=== PATIENT | male | born 1985 | race Caucasian/White ===

== ENCOUNTER 2019-09-22 13:46 | Outpatient (CLI) | payer OTHER, SELFPAY ==
--- NOTE | ~2019-09-22 | MR_ITS ---
EXAMINATION: MR knee LT wo con DATE: 09/22/2019 14:23 INDICATION: Left knee pain TECHNIQUE: Magnetic resonance imaging (MRI) of the left knee was performed without intravenous contra st. Sequences included coronal PD-weighted FSE, coronal PD-weighted FS FSE, sagittal T2-weighted FSE , sagittal PD-weighted FS FSE and axial PD weighted fat saturated FSE. COMPARISON: Radiographs dated 09/09/2019 FINDINGS: Medial compartment: Medial meniscus is normal. Articular cartilage is normal. Lateral compartment: Lateral meniscus is normal. Articular cartilage is normal. Patellofemoral compartment: Articular cartilage is normal. Ligaments and tendons: Anterior and posterior cruciate ligaments are normal. The medial collateral ligament and fibular stiven ateral ligament complex are normal. There is heterotopic ossification with mild internal marrow edema along the deep margin of the distal patellar tendon near its anterior tibial tuberosity insertion co nsistent with likely sequela of chronic Murdo-Schlatter's disease. Extensor mechanism is otherwise u nremarkable. The visualized medial and lateral hamstring tendons as well as the iliotibial band are n ormal. Fluid: Physiologic amount of fluid in the joint space. No loose osteochondral bodies identified. Osseous/other: Aside from the previous noted heterotopic ossification at the anterior tibial tuberosity there is nor mal marrow signal throughout. No fracture or abnormal marrow replacing process. There is amorphous lo w signal intensity replacing the subcutaneous fat overlying the inferior margin of the patella as wel l as anterior tibial tuberosity likely related to fibrosis which is nonspecific but can be seen in th e setting of chronic activities requiring kneeling such as wrestling. IMPRESSION: 1. Mild edema suggesting inflammation within a prominent heterotopic ossicle at the anterior tibial t uberosity insertion of the distal patellar tendon consistent with chronic Sarthak-Schlatter's disease. 2. No internal derangement with normal menisci, cartilage and stabilizing ligaments of the knee. Reviewed, dictated and finalized at location A. IMPRESSION: 1. Mild edema suggesting inflammation within a prominent heterotopic ossicle at the anterior tibial tuberosity insertion of the distal patellar tendon consist ent with chronic Sarthak-Schlatter's disease. 2. No internal derangement with normal menisci, cartilage and stabilizing ligam ents of the knee.
== END 2019-09-22 13:47 ==
LOC: MICIMG 13:47
PROVIDERS: PCP Family Medicine; Visit Provider Nurse Practitioner Family
DX: M25.562 Pain in left knee (principal); R60.0 Localized edema
CPT/HCPCS: 73721

== ENCOUNTER → 2019-12-08 12:10 | Outpatient (CLI) | payer OTHER, SELFPAY ==
--- NOTE | ~2019-12-08 | XR_ITS ---
EXAMINATION: XR chest 2V EXAM DATE: 12/08/2019 12:32 INDICATION: Shortness of breath, cough and dizziness. TECHNIQUE: Frontal and lateral projections of the chest obtained and reviewed. Comparison is made to prior examination from 01/16/2018. FINDINGS: The lungs are clear. There are no pleural effusions. The cardiomediastinal silhouette is within normal limits. There is no pneumothorax suspected. The bones and soft tissues are unremarkab le. There is no significant interval change. IMPRESSION: No acute cardiopulmonary findings. Reviewed, dictated and finalized at location B.
== END ==
PROVIDERS: PCP Family Medicine; Visit Provider Physician Assistant
DX: R06.02 Shortness of breath (principal); R42 Dizziness and giddiness
CPT/HCPCS: 71046

== ENCOUNTER 2020-04-05 15:24 | Outpatient (CLI) | payer OTHER, SELFPAY ==
--- NOTE | ~2020-04-05 | XR_ITS ---
EXAMINATION: XR shoulder RT min 2V DATE: 04/05/2020 15:58 INDICATION: Right shoulder pain and stiffness TECHNIQUE: AP internally and externally rotated, AP oblique externally rotated and axillary views of the right shoulder were obtained. COMPARISON: None FINDINGS: Normal alignment. No fracture. Glenohumeral joint is normal. Acromioclavicular joint is normal. Tiny lateral subacromial spur. Soft tissues are unremarkable. Visualized portions of the right lung are c lear. IMPRESSION: Tiny lateral subacromial spur. Otherwise negative right shoulder radiographs. Reviewed, dictated and finalized at location A. INSPECTOR
--- NOTE | ~2020-04-05 | XR_ITS ---
EXAMINATION:XR cervical spine 4-5V DATE: 04/05/2020 15:58 INDICATION: Neck pain TECHNIQUE: AP, lateral, lateral swimmers and odontoid views of the cervical spine are provided. COMPARISON: None FINDINGS: Straightening of the normal cervical lordosis which could be positional or secondary to muscle spasm. No spondylolisthesis or facet subluxation. Vertebral body and disc heights are normal. Odontoid is i ntact. Normal atlantoaxial interval. Mild uncovertebral osteoarthritis on the right at C3-C4 and on the left at C5-C6. No significant facet osteoarthritis. Prevertebral soft tissues are normal. IMPRESSION: 1. Negligible cervical spondylosis with mild uncovertebral osteoarthritis on the right at C3-C4 on th e left at C5-C6. Reviewed, dictated and finalized at location A. ADJUSTER IMPRESSION: 1. Negligible cervical spondylosis with mild uncovertebral osteoarthritis on th e right at C3-C4 on the left at C5-C6.
== END 2020-04-05 15:25 ==
PROVIDERS: PCP Family Medicine; Visit Provider Family Medicine
DX: M25.511 Pain in right shoulder (principal); M54.2 Cervicalgia
CPT/HCPCS: 72050; 73030

== ENCOUNTER 2021-06-03 09:39 | Emergency (ER) | payer OTHER, SELFPAY ==
[2021-06-03 09:50] VITALS: BP 118/87; PULSE 78; RESP 16; TEMP 36.2; O2SAT 98
--- NOTE | 2021-06-03 10:39 | ED.URI ---
HPI - URI/Sore Throat General Chief Complaint: Upper Respiratory Infection Stated Complaint: uri Time Seen by Provider: 06/03/21 10:30 Source: patient and RN notes reviewed Mode of arrival: ambulatory Limitations: no limitations History of Present Illness HPI Narrative: Patient presents today complaining of a 3-day history of sinus congestion, with postnasal drainage cough, hoarseness. This morning, patient states he was, breathing through a straw. Denies fever. He has been taking allergy medication and Flonase without relief. Denies history of asthma or COPD. MD elicited complaint: cough and nasal congestion Related Data Allergies Allergy/AdvReac Type Severity Reaction Status Date / Time nitrous oxide Allergy Unknown Nausea and Verified 06/03/21 09:52 Vomiting oxycodone AdvReac Intermediate Anaphylaxis Verified 06/03/21 09:52 ANESTHESIA GAS AdvReac Intermediate Nausea and Uncoded 06/03/21 09:52 Vomiting Review of Systems Review of Systems: CONSTITUTIONAL: Denies body aches, fever, chills, or sweats. EYES: Denies visual changes, redness, or discharge. ENT: Denies rhinorrhea, sore throat, or otalgia.+ Postnasal drip, nasal congestion CARDIOVASCULAR: Denies chest pain, palpitations, or edema. RESPIRATORY: Denies dyspnea.+ Cough GASTROINTESTINAL: Denies abdominal pain, nausea, vomiting, or diarrhea. GENITOURINARY: Denies dysuria or hematuria. SKIN: Denies rash, itching, or wounds. MUSCULOSKELETAL: Denies back pain, joint pain, or myalgia. NEUROLOGIC: Denies headache, numbness, tingling, or weakness. PSYCH: Denies depression or anxiety. [facility] Past Medical History Medical History Chronic back pain History of adverse reaction to anesthesia History of appendicitis Clayton-Schlatter's disease Patellar tendonitis of left knee Vision abnormalities Surgical History Surgical History H/O discectomy (~2008) Hx of appendectomy (~1998) Family History Family History Grandparent Diabetes mellitus Depression Family history of malignant neoplasm of gastrointestinal tract Family history of primary malignant neoplasm of liver Father Family history of malignant neoplasm of testis Other Arthritis Social History Social History Years smoked: 4 Tobacco type: cigars Alcohol intake: current Drinks per week: 7 Substance use: never Substance use type: does not use Gender identity (if verbalized by the patient): Male Spiritual care concerns: No Agree to blood products: No Comments At time of signature, I have reviewed and agree with nursing past medical, surgical, social and family history unless otherwise noted. Please see nursing chart for further information. There is no relevant family history pertinent to the presenting complaint Exam Narrative: GENERAL: Well-appearing, well-nourished, and in no acute distress. HEAD: Normocephalic, atraumatic. EYES: EOMI. No redness or drainage. Conjunctivae normal. ENT: Mucous membranes pink and moist. Nares congested. No rhinorrhea. TMs normal bilaterally. Throat normal with small amount of postnasal drainage. Uvula midline. NECK: Normal AROM. Supple. No lymphadenopathy. CHEST: No respiratory distress. Clear to auscultation. HEART: Regular rate and rhythm. No murmur appreciated. Normal peripheral pulses. EXTREMITIES: Normal range of motion. No edema. SKIN: Warm, dry, no rash. Capillary refill normal. Normal skin turgor. NEURO: No focal deficits. Alert and oriented x3. Gait steady. PSYCH: Normal affect. No signs of depression or anxiety. Course Course Level of Care: Express Care Visit Vital Signs Vital signs: Vital Signs Temperature 97.1 F L 06/03/21 09:50 Pulse Rate 78 06/03/21 09:50 Respiratory Rate 16 06/03/21 09:50 Blood
== END 2021-06-03 10:47 | disposition home or self-care (01) ==
PROVIDERS: Emergency Provider Nurse Practitioner; PCP Family Medicine
DX: J40 Bronchitis, not specified as acute or chronic (principal); J06.9 Acute upper respiratory infection, unspecified
CPT/HCPCS: 99213; G0463

== ENCOUNTER → 2022-01-18 16:06 | Outpatient (CLI) | payer OTHER, SELFPAY ==
--- NOTE | ~2022-01-18 | XR_ITS ---
XR lumbar spine 2-3V DATE: 01/18/2022 16:26 INDICATION: Back pain TECHNIQUE: AP, lateral, coned lateral lumbosacral views COMPARISON: None FINDINGS: There is minimal levoscoliosis of the lumbar spine. There is moderately severe degenerative disc disease at L5-S1. The lumbar interspaces appear relative ly well preserved. No fracture or bone destruction. T12-L5 pedicles are intact. The sacroiliac joints appear normal. IMPRESSION: Moderately severe degenerative disease at L5-S1 Reviewed, dictated and finalized at location A.
== END ==
PROVIDERS: PCP Family Medicine; Visit Provider Physician Assistant Medical
DX: M51.37 Other intervertebral disc degeneration, lumbosacral region (principal)
CPT/HCPCS: 72100

== ENCOUNTER 2022-06-25 10:15 | Emergency (ER) | payer SELFPAY ==
--- NOTE | 2022-06-25 10:16 | ED.URI ---
HPI - URI/Sore Throat General Chief Complaint: Upper Respiratory Infection Stated Complaint: Congestion,Cough,Lt Ear Irritation Time Seen by Provider: 06/25/22 10:20 Source: patient, RN notes reviewed and old records reviewed Mode of arrival: ambulatory Limitations: no limitations History of Present Illness HPI Narrative: 36-year-old male presents to the [facility] with complaints of left ear pain, cough and congestion for 10 days Patient reports taking DayQuil, NyQuil and a decongestant yesterday. Onset (ago): day(s) () Consistency: constant Related Data Allergies Allergy/AdvReac Type Severity Reaction Status Date / Time nitrous oxide Allergy Unknown Nausea and Verified 06/25/22 10:24 Vomiting oxycodone AdvReac Intermediate Anaphylaxis Verified 06/25/22 10:24 ANESTHESIA GAS AdvReac Intermediate Nausea and Uncoded 01/18/22 15:33 Vomiting Review of Systems Review of Systems: All systems reviewed & are unremarkable except as noted in HPI and below Constitutional: Constitutional: Reports no additional constitutional complaints Eyes: Eyes: Reports no additional eye complaints ENT: Reports as per HPI, Reports otalgia, Reports nasal discharge and Reports sinus pressure Cardiovascular: Cardiovascular: Reports no additional cardiovascular complaints, Denies chest pain and Denies dyspnea Respiratory: Respiratory: Reports as per HPI, Reports chest congestion, Reports cough and Denies dyspnea Gastrointestinal: Gastrointestinal: Reports no additional gastrointestinal complaints, Denies abdominal pain, Denies nausea and Denies vomiting Musculoskeletal: Musculoskeletal: Reports no additional musculoskeletal complaints Integumentary/Breasts: Skin/Breast: Reports system reviewed and no additional complaints, except as docu Neurologic: Reports system reviewed and no additional complaints, except as documented Psychiatric: Psychiatric: Reports no additional psychiatric complaints Allergic/Immunologic: Allergic/Immunologic: Reports no additional allergic/immunologic complaints [facility] Past Medical History Medical History Chronic back pain History of adverse reaction to anesthesia History of appendicitis Tippo-Schlatter's disease Patellar tendonitis of left knee Vision abnormalities Surgical History Surgical History H/O discectomy (~2008) Hx of appendectomy (~1998) Family History Family History Grandparent Diabetes mellitus Depression Family history of malignant neoplasm of gastrointestinal tract Family history of primary malignant neoplasm of liver Father Family history of malignant neoplasm of testis Other Arthritis Social History Social History Years smoked: 4 Smoking status: Former smoker (quit 6 years ago. ) Tobacco type: cigars Alcohol intake: current Drinks per week: 7 Substance use: never Substance use type: does not use Lack of Transportation: No Lack of Food: Never True Current Housing: I Have Housing Concerned About Future Housing: No Difficulty Paying Gas/Electric Bills: No Difficulty Paying for Meds: No Currently Unemployed: No Education: Associate Degree Difficulty w/ Childcare or Family Care: No Living arrangements: with family Occupation/Education: occupation Gender identity (if verbalized by the patient): Male Spiritual care concerns: No Agree to blood products: No Comments At the time of my signature, I reviewed and agree with the nursing past medical, surgical, social, and family history. There is no relevant family history pertinent to the patient complaint. Exam Const: General: cooperative, healthy appearing, comfortable, no acute distress, well developed, alert and well nourished Nutritional Appearance: well nourish
[2022-06-25 10:18] VITALS: BP 118/80; PULSE 80; RESP 18; TEMP 36.7; O2SAT 100
== END 2022-06-25 10:35 | disposition home or self-care (01) ==
PROVIDERS: Emergency Provider Nurse Practitioner; PCP Family Medicine
DX: J40 Bronchitis, not specified as acute or chronic (principal); Z87.891 Personal history of nicotine dependence
CPT/HCPCS: 99213; G0463

== ENCOUNTER 2023-01-04 14:10 | Emergency (ER) | payer OTHER, SELFPAY ==
--- NOTE | ~2023-01-04 | XR_ITS ---
XR chest 2V DATE: 01/04/2023 14:52 INDICATION: Left chest pressure, shortness of breath TECHNIQUE: PA and lateral views COMPARISON: None FINDINGS: Normal heart size. No hilar or mediastinal enlargement. No pulmonary infiltrate or consolid ation, pleural effusion or pulmonary vascular congestion or pneumothorax. Included skeletal structure s appear normal. IMPRESSION: Negative Reviewed, dictated and finalized at location L. IMPRESSION: Negative
--- NOTE | 2023-01-04 14:12 | ECG_ITS ---
Measurements Intervals [place] Rate: 77 P: 47 NC: 146 QRS: 27 QRSD: 89 T: 33 QT: 365 QTc: 415 Interpretive Statements SINUS RHYTHM NORMAL ECG NO PREVIOUS ECG AVAILABLE FOR COMPARISON Electronically Signed On 01-04-2023 17:23:54 CDT by Venkatesh Conroy M.D.
[2023-01-04 14:16] VITALS: BP 125/88; PULSE 79; RESP 16; TEMP 36.7; O2SAT 97
[2023-01-04 14:38] LABS: Basophils Absolute Auto 0.1 K/mm3 (0.0-0.1); Eosinophils Absolute Auto 0.2 K/mm3 (0-0.3); Eosinophils Percent Auto 2.3 % (0-4.4); Hematocrit 44.1 % (42.0-52.0); Hemoglobin 14.7 g/dL (14.0-18.0); Immature Granulocyte Absolute 0.02 K/mm3 (0.00-0.031); Immature Granulocyte Percent A 0.3 % (0-0.5); Lymphocytes Absolute Auto 2.71 K/mm3 (0.9-3.2); Lymphocytes Percent Auto 34.1 % (18.3-44.2); Mean Corpuscular HGB Conc 33.3 g/dl (32-36); Mean Corpuscular Hemoglobin 29.1 pg (26-34); Mean Corpuscular Volume 87.3 fl (80-100); Mean Platelet Volume 9.9 fl (7.4-10.4); Monocytes Absolute Auto 0.5 K/mm3 (0.1-0.6); Monocytes Percent Auto 5.9 % (2.6-8.5); Neutrophils Absolute Auto 4.5 K/mm3 (1.3-6.7); Neutrophils Percent Auto 56.4 % (45.5-73.1); Platelet Count Result 262 k/mm3 (150-375); Red Blood Count 5.05 M/mm3 (4.6-6.20); Red Cell Distribution Width 12.4 % (11.5-14.5)
[2023-01-04 14:49] LABS: Alanine Aminotransferase 109 U/L (6-50); Albumin Level 4.9 g/dL (3.5-5.1); Alkaline Phosphatase 43 U/L (38-126); Anion Gap 10 mmol/L (8-16); Aspartate Amino Transferase 59 U/L (17-59); Bilirubin,Total 0.7 mg/dL (0.2-1.3); Blood Urea Nitrogen 16 mg/dL (9-20); Calcium 9.6 mg/dL (8.4-10.2); Carbon Dioxide 27 mmol/L (22-30); Chloride 101 mmol/L (98-107); Estimated CRCL calculation 121 ml/min; Estimated Glomerular Filt Rate > 60; Glucose 91 mg/dL (65-110); Lipase 104 U/L (23-300); Potassium 3.8 mmol/L (3.4-5.0); Sodium 138 mmol/L (137-145)
[2023-01-04 14:59] LABS: Troponin I < 0.012 ng/mL (0.000-0.034)
[2023-01-04 15:00] LABS: Partial Thromboplastin Time 27.5 SECONDS (22.3-36.8); Prothrombin Time 13.5 Seconds (11.1-14.7)
[2023-01-04 15:57] VITALS: BP 128/76; PULSE 69; RESP 18; TEMP 35.9; O2SAT 100
[2023-01-04 17:57] LABS: D Dimer < 0.27 ug/mL (<0.48)
[2023-01-04 18:16] VITALS: BP 129/93; PULSE 75; RESP 18; O2SAT 98
--- NOTE | 2023-01-04 18:16 | ED.GENADULT ---
HPI - General Adult General Chief complaint: Chest Pain Stated complaint: CP since last Sunday Time Seen by Provider: 01/04/23 16:43 History of Present Illness HPI narrative: 37-year-old male present emergency department for evaluation of chest pain. Patient was evaluated at [facility] recently for chest pain and had negative cardiac work-up. Patient does have cardiology follow-up on Sunday. Patient states he is still having some intermittent chest pain that radiates to his left arm. Patient denies any previous cardiac history. Patient denies any previous history of PE or DVT. Patient denies any recent cough colds or fevers. Related Data Allergies Allergy/AdvReac Type Severity Reaction Status Date / Time nitrous oxide Allergy Unknown Nausea and Verified 10/30/22 15:24 Vomiting acetaminophen [From Percocet] Allergy Dyspnea / Verified 01/04/23 16:38 SOB oxycodone AdvReac Intermediate Anaphylaxis Verified 10/30/22 15:24 ANESTHESIA GAS AdvReac Intermediate Nausea and Uncoded 10/30/22 15:24 Vomiting Review of Systems Review of Systems: All systems reviewed & are unremarkable except as noted in HPI and below PMFSH Past Medical History Medical History Chronic back pain History of adverse reaction to anesthesia History of appendicitis Imperial-Schlatter's disease Patellar tendonitis of left knee Vision abnormalities Surgical History Surgical History H/O discectomy (~2008) Hx of appendectomy (~1998) Family History Family History Grandparent Diabetes mellitus Depression Family history of malignant neoplasm of gastrointestinal tract Family history of primary malignant neoplasm of liver Father Family history of malignant neoplasm of testis Other Arthritis Social History Social History Years smoked: 4 Smoking status: Former smoker (quit 7 years ago. ) Tobacco type: cigars Alcohol intake: current Drinks per week: 7 Substance use: never Substance use type: does not use Lack of Transportation: No Lack of Food: Never True Current Housing: I Have Housing Concerned About Future Housing: No Difficulty Paying Gas/Electric Bills: No Difficulty Paying for Meds: No Currently Unemployed: No Education: Associate Degree Difficulty w/ Childcare or Family Care: No Living arrangements: with family Occupation/Education: occupation Gender identity (if verbalized by the patient): Male Spiritual care concerns: No Agree to blood products: No Exam Narrative: APPEARANCE: Well appearing, no pain, no distress, well-nourished. HEAD: normocephalic, atraumatic. EYES: PERRLA/EOMI, conjunctivae clear. NOSE: Normal no drainage NECK: Supple. No adenopathy, no masses. RESPIRATORY: Airway patent, respirations nonlabored. Clear to auscultation bilaterally, no rales, rhonchi, wheezing. CARDIOVASCULAR: Regular rate and rhythm without murmurs rubs or gallops. ABDOMINAL: Soft, nontender, nondistended, normal bowel sounds MUSCULOSKELETAL: Moves all extremities. Strength/ROM intact, No edema, No calf tenderness. NEURO: Alert. Cranial nerves II through XII intact. Grossly intact SKIN: Warm, dry. Normal Color Course Course Emergency Course: 37-year-old male present emerged department for evaluation of chest pain. Patient is afebrile with no leukocytosis and a stable hemoglobin. Patient has no significant abnormalities on his CMP. Patient had negative D-dimer. Patient had negative serial troponins. Chest x-ray showed no acute cardiopulmonary abnormality. EKG showed normal sinus rhythm with no ST changes. Patient was updated on the results of the work-up and was encouraged of close follow-up with his primary care physician and with cardiology as scheduled. Patient wa
[2023-01-04 18:22] VITALS: PULSE 78; RESP 13; O2SAT 98
[2023-01-04 18:29] LABS: Troponin I < 0.012 ng/mL (0.000-0.034)
== END 2023-01-04 18:47 | disposition home or self-care (01) ==
PROVIDERS: Emergency Provider Emergency Medicine; PCP Family Medicine
DX: R07.9 Chest pain, unspecified (principal); M92.529 Juvenile osteochondrosis of tibia tubercle, unspecified leg; Z87.891 Personal history of nicotine dependence
CPT/HCPCS: 36415; 71046; 80053; 83690; 84484; 85025; 85380; 85610; 85730; 93005; 99284

== ENCOUNTER 2024-01-08 14:35 | Outpatient (CLI) | payer BC, SELFPAY ==
--- NOTE | ~2024-01-08 | US_ITS ---
EXAMINATION: US scrotum doppler DATE: 01/08/2024 15:16 INDICATION: Testicular pain TECHNIQUE: Sonographic evaluation of the scrotum was performed assessing grayscale appearance and col or Doppler flow. Spectral Doppler evaluation was also performed. COMPARISON: None. FINDINGS: RIGHT TESTICLE: The right testicle measures 5.0 x 2.1 x 3.0 cm. Arterial and venous flow are present. RIGHT EPIDIDYMIS: The right epididymis measures 10 mm. Prominent vasculature with Valsalva. Pre-Valsalva measurement less than 3 mm. LEFT TESTICLE: The left testicle measures 4.6 x 2.4 x 3.0cm. Arterial and venous flow are demonstrated. LEFT EPIDIDYMIS: The left epididymis measures 12 mm. Prominent vasculature with Valsalva. Pre-Valsalva measurement 3.4 mm. IMPRESSION: Trace left-sided varicocele, as detailed above. No additional abnormality is appreciated. Reviewed, dictated and finalized at location A.
== END 2024-01-08 14:36 | disposition home or self-care (01) ==
PROVIDERS: PCP Nurse Practitioner Family; Visit Provider Nurse Practitioner Family
DX: N50.819 Testicular pain, unspecified (principal)
CPT/HCPCS: 76870; 93976

== ENCOUNTER 2025-02-06 14:18 | Outpatient (CLI) | payer BC, SELFPAY ==
--- NOTE | ~2025-02-06 | XR_ITS ---
EXAM/PROCEDURE: XR lumbar spine 2-3V HISTORY: low back pain COMPARISON: 01/18/2022 TECHNIQUE: 2 view lumbar spine FINDINGS: No gross acute interval change from the previous exam. Moderately severe disc space narrowing at L5-S1 with milder changes at levels above. No gross acute or aggressive bony or soft tissue process. At least moderate possibly large amount of stool extending to the cecum. IMPRESSION: No obvious interval change from the 2021 exam with degenerative changes throughout the lower lumbar spine most advanced at L5-S1. For persisting or worsening back pain refractory to conservative therapy, consider correlation with lumbar spine MRI for optimal sensitivity. Reviewed, dictated and finalized at location A. NATAL TECHNICIAN IMPRESSION: No obvious interval change from the 2021 exam with degenerative changes through out the lower lumbar spine most advanced at L5-S1. For persisting or worsening back pain refractory to conservative therapy, consider correlation with lumbar spine MRI for optimal sensitivity.
== END 2025-02-06 14:19 | disposition home or self-care (01) ==
PROVIDERS: PCP Student in an Organized Health Care Education/Training Program; Visit Provider Student in an Organized Health Care Education/Training Program
DX: M54.50 Low back pain, unspecified (principal); F41.9 Anxiety disorder, unspecified
CPT/HCPCS: 72100

== ENCOUNTER 2025-02-10 08:20 | Outpatient (CLI) | payer BC, SELFPAY ==
--- NOTE | ~2025-02-10 | US_ITS ---
US right upper quadrant Indication: R74.8 - Abnormal levels of other serum enzymes Comparison: None Technique: Calabrese-scale and color Doppler images were obtained. Findings: LIVER: Moderate increased echogenicity of the liver. . GALLBLADDER/BILIARY: Cholelithiasis, no wall thickening. CBD 4 mm. [place] sign negative. PANCREAS: Unremarkable. Right Kidney: Right kidney 12.3 cm, normal. Impression: 1. Hepatic steatosis versus hepatocellular disease. Cholelithiasis. Reviewed, dictated and finalized at location P. ER LAYER Impression: 1. Hepatic steatosis versus hepatocellular disease. Cholelithiasis.
== END 2025-02-10 08:21 | disposition home or self-care (01) ==
LOC: MICIMG 08:20
PROVIDERS: PCP Student in an Organized Health Care Education/Training Program; Visit Provider Student in an Organized Health Care Education/Training Program
DX: R74.8 Abnormal levels of other serum enzymes (principal); K76.0 Fatty (change of) liver, not elsewhere classified
CPT/HCPCS: 76705